=== PATIENT | male | born 1975 | race Caucasian/White ===

== ENCOUNTER 2021-07-29 13:14 | Emergency (ER) | payer OTHER ==
[~2021-07-29] VITALS: Ht 185.4 cm; Wt 90.9 kg
[2021-07-29 13:59] VITALS: BP 130/79
[2021-07-29] MEDS ORDERED: AMOX500C2 PO (14:28)
== END 2021-07-29 15:19 | disposition home or self-care (01) ==
LOC: ER 13:15
DX: J01.90 Acute sinusitis, unspecified (principal); Z79.2 Long term (current) use of antibiotics
CPT/HCPCS: 99283

== ENCOUNTER 2021-07-31 19:00 | Emergency (ER) | payer OTHER ==
[~2021-07-31] VITALS: Ht 188 cm; Wt 81.8 kg
[~2021-07-31 19:00] MED LIST: AMOX500C2 PO
== END 2021-07-31 19:29 | disposition home or self-care (01) ==
LOC: ER 19:01
DX: U07.1 COVID-19 (principal); R50.9 Fever, unspecified; R05 Cough; Z79.2 Long term (current) use of antibiotics
CPT/HCPCS: 36415; 99281

== ENCOUNTER 2024-07-10 03:54 | Emergency (ER) | payer OTHER ==
[~2024-07-10] VITALS: Ht 185.4 cm; Wt 90.9 kg
[2024-07-10] MEDS: HYDROmorphone 1 mg/ml syringe IV ONE (04:30)
[2024-07-10] MEDS: pantoprazole 40 MG vial IV ONE (04:30)
[2024-07-10] MEDS: ondansetron/PF 4mg/2ml inj IV ONE (04:30)
[2024-07-10] MEDS: normal saline 1000ml 1,000 ML IV ONE (04:30)
[2024-07-10] MEDS ORDERED: iohexol 300mg/ml 100ml inj. ONE (04:47)
[2024-07-10 05:44] LABS: BASOPHILS % (AUTO) 0.2 % (0-1); EOSINOPHILS % (AUTO) 0.1 % (0-6); HEMATOCRIT 47.4 % (42.0-52.0); HEMOGLOBIN 16.1 g/dl (14.0-17.9); LYMPHOCYTES # (AUTO) 1.2 X10'3 (1.1-4.8); LYMPHOCYTES % (AUTO) 12.6 % (21-51); MEAN CORPUSCULAR HEMOGLOBIN 29.8 PG (27.0-31.0); MEAN CORPUSCULAR HGB CONC 33.9 g/dL (33.0-36.5); MEAN CORPUSCULAR VOLUME 87.7 FL (78-98); MEAN PLATELET VOLUME 10.2 FL (7.4-10.4); MONOCYTES # (AUTO) 0.4 X10'3 (0-0.9); MONOCYTES % (AUTO) 4.1 % (2-12); NEUTROPHILS # (AUTO) 7.9 X10'3 (1.8-7.7); PLATELET COUNT 185 X10'3 (140-440); RED BLOOD COUNT 5.41 X10'6 (4.70-6.10); RED CELL DISTRIBUTION WIDTH 13.3 % (11.5-14.5); WHITE BLOOD COUNT 9.6 X10'3 (4.5-11.0)
[2024-07-10 05:49] LABS: ALANINE AMINOTRANSFERASE 34 U/L (12-78); ALBUMIN/GLOBULIN RATIO 1.1 (1.1-1.5); ALKALINE PHOSPHATASE 75 IU/L (46-116); ANION GAP 7 (8-16); BILIRUBIN,TOTAL 0.6 MG/DL (0.1-1.0); BLOOD UREA NITROGEN 10 MG/DL (7-18); BUN/CREATININE RATIO 9.6 (10.0-20.0); CALCIUM 9.2 MG/DL (8.5-10.1); CHLORIDE 103 MMOL/L (99-107); CREATININE 1.04 MG/DL (0.60-1.10); GLUCOSE 168 MG/DL (70-104); LIPASE 21 U/L (16-77); SODIUM 139 MMOL/L (135-145); TOTAL CARBON DIOXIDE 29.1 MMOL/L (24-32); TOTAL PROTEIN 7.7 G/DL (6.4-8.2); eCRCL 96 ML/MIN; eGFR 76 ML/MIN
[2024-07-10 05:50] LABS: ASPARTATE AMINO TRANSFERASE 66 U/L (10-37); POTASSIUM 3.7 MMOL/L (3.5-5.1)
[2024-07-10 06:30] LABS: BILIRUBIN,URINE NEGATIVE (Neg); CLARITY,URINE CLEAR (Clear); COLOR,URINE YELLOW (Yellow); GLUCOSE, URINE 100 mg/dl (Neg); KETONES,URINE NEGATIVE (Neg); LEUKOCYTE ESTERASE ,URINE NEGATIVE (Neg); NITRITES, URINE NEGATIVE (Neg); OCCULT BLOOD,URINE NEGATIVE (Neg); PH,URINE 6.5 (4.8-8.0); PROTEIN,URINE NEGATIVE (Neg); UROBILINOGEN,URINE 0.2 E.U/dL (0.2-1.0)
[2024-07-10 06:33] LABS: UA COLLECTION TYPE CLN CATCH MIDSTREAM
[2024-07-10] MEDS ORDERED: PANT20TA18 PO (07:25)
[2024-07-10] MEDS ORDERED: DICY10CA88 PO (07:25)
[2024-07-10] MEDS: dicyclomine 10 MG capsule PO ONE (08:11)
[2024-07-10] MEDS: ketorolac trometh 30MG/ML vial 30 MG/ML VIAL IV ONE (08:12)
[2024-07-10 08:28] VITALS: BP 142/90; PULSE 59; RESP 14; O2SAT 100
[2024-07-10 08:30] VITALS: TEMP 98.5
== END 2024-07-10 08:32 | disposition home or self-care (01) ==
LOC: ER 03:54
DX: R10.13 Epigastric pain (principal); R73.9 Hyperglycemia, unspecified; Z79.899 Other long term (current) drug therapy
CPT/HCPCS: 36415; 74177; 80053; 81003; 83690; 85025; 96365; 96375; 99285; J1170; J1885; J2405; J2470; J7030; Q9967

== ENCOUNTER 2024-07-11 20:34 | Emergency (ER) | payer OTHER ==
[~2024-07-11] VITALS: Ht 185.4 cm; Wt 89.7 kg
[~2024-07-11 20:34] MED LIST changes: -AMOX500C2 PO; +DICY10CA88 PO; +PANT20TA18 PO
[2024-07-11 21:33] LABS: BILIRUBIN,URINE NEGATIVE (Neg); CLARITY,URINE CLEAR (Clear); COLOR,URINE STRAW (Yellow); GLUCOSE, URINE NEGATIVE (Neg); KETONES,URINE NEGATIVE (Neg); LEUKOCYTE ESTERASE ,URINE NEGATIVE (Neg); NITRITES, URINE NEGATIVE (Neg); OCCULT BLOOD,URINE NEGATIVE (Neg); PH,URINE 7.5 (4.8-8.0); PROTEIN,URINE NEGATIVE (Neg); UROBILINOGEN,URINE 0.2 E.U/dL (0.2-1.0)
[2024-07-11 21:39] LABS: BASOPHILS # (AUTO) 0.1 X10'3 (0-0.2); BASOPHILS % (AUTO) 1.5 % (0-1); EOSINOPHILS % (AUTO) 0.2 % (0-6); HEMATOCRIT 46.8 % (42.0-52.0); HEMOGLOBIN 16.4 g/dl (14.0-17.9); LYMPHOCYTES # (AUTO) 1.2 X10'3 (1.1-4.8); LYMPHOCYTES % (AUTO) 13.3 % (21-51); MEAN CORPUSCULAR HEMOGLOBIN 30.6 PG (27.0-31.0); MEAN CORPUSCULAR VOLUME 87.5 FL (78-98); MEAN PLATELET VOLUME 9.9 FL (7.4-10.4); MONOCYTES # (AUTO) 0.5 X10'3 (0-0.9); MONOCYTES % (AUTO) 5.6 % (2-12); NEUTROPHILS # (AUTO) 7.2 X10'3 (1.8-7.7); NEUTROPHILS % (AUTO) 79.4 % (42-75); PLATELET COUNT 167 X10'3 (140-440); RED BLOOD COUNT 5.34 X10'6 (4.70-6.10); RED CELL DISTRIBUTION WIDTH 13.3 % (11.5-14.5)
[2024-07-11 21:39] LABS: UA COLLECTION TYPE VOIDED
[2024-07-11 21:45] LABS: ALANINE AMINOTRANSFERASE 55 U/L (12-78); ALBUMIN/GLOBULIN RATIO 1.2 (1.1-1.5); ALKALINE PHOSPHATASE 70 IU/L (46-116); ANION GAP 7 (8-16); ASPARTATE AMINO TRANSFERASE 49 U/L (10-37); BILIRUBIN,TOTAL 0.6 MG/DL (0.1-1.0); BLOOD UREA NITROGEN 9 MG/DL (7-18); BUN/CREATININE RATIO 8.4 (10.0-20.0); CALCIUM 8.9 MG/DL (8.5-10.1); CHLORIDE 103 MMOL/L (99-107); CREATININE 1.07 MG/DL (0.60-1.10); GLUCOSE 115 MG/DL (70-104); LIPASE 22 U/L (16-77); POTASSIUM 3.8 MMOL/L (3.5-5.1); SODIUM 141 MMOL/L (135-145); TOTAL CARBON DIOXIDE 30.8 MMOL/L (24-32); TOTAL PROTEIN 7.4 G/DL (6.4-8.2); eCRCL 93 ML/MIN; eGFR 89 ML/MIN
[2024-07-11] MEDS: LIDOcaine 2% Viscous 15ml cup MM ONE (22:05)
[2024-07-11] MEDS: mag hydrox/Alum hydrox/simeth 30ml oral suspension PO ONE (22:06)
[2024-07-11] MEDS: ketorolac trometh 15mg/ml vial 15 MG/ML ML IM ONE (23:33)
[2024-07-11] MEDS: morphine 2 MG/ML inj. syringe IM ONE (23:38)
[2024-07-12 00:04] VITALS: BP 148/98; PULSE 65; RESP 16; TEMP 98.5; O2SAT 97
== END 2024-07-11 23:45 | disposition home or self-care (01) ==
LOC: ER 20:34
DX: R10.13 Epigastric pain (principal); Z79.899 Other long term (current) drug therapy; Z79.1 Long term (current) use of non-steroidal anti-inflammatories (NSAID)
CPT/HCPCS: 36415; 80053; 81003; 83690; 85025; 96372; 99284; J1885; J2270